=== PATIENT | female | born 1945 | race Caucasian/White ===

== ENCOUNTER 2016-07-31 17:55 | Inpatient (IN) | payer MEDICARE, OTHER ==
[~2016-07-31] VITALS: Ht 162.6 cm; Wt 122.0 kg
--- NOTE | ~2016-07-31 | CON ---
PATIENT'S NAME: ADRIANNE THRASHER [facility] AGE: 70 Y [address] ROOM: [address] [address] [facility] ADMIT DATE: 07/31/2016 Consultation DISCHARGE DATE: FAMILY PHYSICIAN: PHYSICIAN, UNKNOWN ATTENDING PHYSICIAN: WENDY CORONEL REFERRING PHYSICIAN: HUNG CASTANON MD REASON FOR CONSULTATION: Chest pain. REQUESTING PROVIDER: Dr. Burrows. PRIMARY CARE PROVIDER: KI Meng. CHIEF COMPLAINT: Chest pain and shortness of breath. HISTORY OF PRESENTING ILLNESS: The patient is a very pleasant, 70-year-old female, who says for the last 1 to 2 months she has been having dry cough. She also has occasional green phlegm associated with it; however, she does not have any fever or chills. It has been off and on. Her main symptoms have also been dyspnea on exertion as well as chest pressure and heaviness with exertion, it lasts about 5 to 10 minutes and resolves with rest. She reports she is doing lesser activities due to these symptoms. The symptoms were coming on with lesser exertion in the past month or so. She also reports a chest pressure and heaviness that radiate to her left arm as well as her jaw, it is predictably exertional. She also reports she was stopped off her lisinopril for the cough, but that persisted. The patient recently saw Pulmonary Department for her dry cough as well as dyspnea on exertion. There was suspicion for unstable angina and I was asked to see the patient. I did interview her briefly; however, I did not do a full consultation that was scheduled for [place] on Friday within a week, and I gave her samples of Ranexa to see if that will help alleviate some of her symptoms while awaiting possibly a stress test and echocardiogram. However, in the last 2 days, she has been having more shortness of breath and chest discomfort that gets better with rest. The chest pain is left-sided, it is mostly pressure and tightness, it does radiate to the shoulder and arm and lasts about 10 minutes and resolves with rest, and this occurred when she was working in her garden. PATIENT'S NAME: ADRIANNE THRASHER [facility] AGE: 70 Y [address] ROOM: [address] [place], [place] [address] LOCATION: [facility] ADMIT DATE: 07/31/2016 Consultation DISCHARGE DATE: FAMILY PHYSICIAN: PHYSICIAN, UNKNOWN ATTENDING PHYSICIAN: WENDY CORONEL It is always provoked with exertion and resolved with rest. She does not have any stroke-like symptoms. No bleeding issues. No upcoming surgeries. No contrast allergies. Her cardiac isoenzymes so far have been negative. She is on Eliquis for PE that occurred about 9 months ago. EKG shows dynamic T-wave inversion in lead V2. She does have T-wave inversion in lead III as well. REVIEW OF SYSTEMS: All review of systems discussed with the patient, pertinent positives and negatives mentioned in the history of presenting illness. PAST MEDICAL HISTORY: 1. Bilateral PE, on Eliquis, diagnosed about 9 months ago. 2. GERD. 3. Hypothyroidism. 4. Restless legs syndrome. 5. Depression. 6. Hypertension. ALLERGIES: AMOXICILLIN, LISINOPRIL, AND NICKEL. HOME MEDICATIONS: That she is on, 1. Albuterol inhaler. 2. Eliquis 5 mg p.o. b.i.d. 3. Symbicort inhaler twice a day. 4. Vitamin D3 1000 units daily. 5. Klonopin 2 mg at bedtime. 6. Flexeril 10 mg t.i.d. p.r.n. for muscle spasms. 7. Synthroid 112 mcg. 8. Meloxicam 15 mg at bedtime. 9. Mesalamine 500 mg p.o. b.i.d. 10. Nitroglycerin sublingual p.r.n. 11. Omeprazole 20 mg daily. 12. Paroxetine 40 mg daily. 13. Ranexa 500 mg b.i.d. 14. Valsartan 80 mg daily. 15. Venlafaxine 150 mg at bedtime. 16. Ambien 10 mg at bedtime. SOCIAL HISTORY: The patient denies any alcohol, illicit drug abuse, or cigarette smoking. PATIENT'S NAME: ADRIANNE THRASHER [facility] AGE: 70 Y [address] ROOM: [place] [address] LOCATION: [facility]U ADMIT DATE: 07/31/2016 Consultation DISCHARGE DATE: FAMILY PHYSICIAN: PHYSICIAN, UNKNOWN ATTENDING PHYSICIAN: WENDY CORONEL FAMILY HISTORY: No premature coronary artery disease or sudden cardiac . PAST SURGICAL HISTORY: Status post carpal tunnel surgery in the past. PHYSICAL EXAMINATION: VITAL SIGNS: Blood pressure 140/80, respirations 14, O2 saturations 98% on room air, afebrile, and heart rate in the 70s. GENERAL APPEARANCE: She is alert and oriented, in no apparent distress. HEENT: Head, atraumatic and normocephalic. Extraocular movements are intact. Sclerae white. Mucous membranes moist. NECK: No JVD. HEART: S1, S2. Regular rate and rhythm. No murmurs, gallops, or rubs. RESPIRATORY: Clear to auscultation bilaterally. ABDOMEN: Obese, soft. Bowel sounds positive. EXTREMITIES: No significant lower extremity edema. NEUROLOGIC: Grossly intact. Able to move all extremities against gravity. SKIN: Warm and dry. MUSCULOSKELETAL: Good range of motion. LABORATORY DATA: Sodium 140, potassium 4.2, chloride 107, CO2 of 23, glucose 96, BUN 14, creatinine 1, alkaline phosphatase 64, AST 17, ALT 16, GFR 55, triglycerides 172, HDL 60, VLDL 34, LDL 78, CPK 139 and 176, CK-MB 0.5 and 0.5, troponin less than 0.04 x2, proBNP is 61, TSH is 4.1. WBC 5.8, H and H of 12.4 and 38.3, and platelets are 235. Chest x-ray: No vascular congestion or acute infiltrate. She does have a hiatal hernia. EKG: Normal sinus rhythm. T-wave inversion in lead V2 and III. IMPRESSION: 1. Unstable angina. 2. Hypertension. 3. Hyperlipidemia. 4. Morbid obesity. 5. Gastroesophageal reflux disease. 6. Hypothyroidism. 7. Chronic kidney disease, stage 2. PLAN: The patient describes symptoms of unstable angina. Her symptoms are predictably exertional and they resolve with rest. She has chest pain radiating to the left arm and jaw, associated with dyspnea on exertion that PATIENT'S NAME: ADRIANNE THRASHER [facility] AGE: 70 Y [address] ROOM: [place] [address] [facility] ADMIT DATE: 07/31/2016 Consultation DISCHARGE DATE: FAMILY PHYSICIAN: PHYSICIAN, UNKNOWN ATTENDING PHYSICIAN: HOMERWENDY resolves with rest. She is limiting her activities due to her symptoms. At this time, cardiac cath is indicated to define her coronary anatomy and help guide therapy. Risks and benefits are discussed with the patient, and she is agreeable to proceed with plan. Risks of bleeding, bruising, infection 1 in 100 cases; risks of heart attack, , stroke, [place], TICO, losing a limb, ending up on dialysis less than 1 in 1000 cases. Given her worsening symptoms and having the need to reduce her physical exertion, the patient at this time is agreeable to proceed with cardiac cath, possible PCI. Thank you very much for allowing us to participate in the care of Mrs. Thrasher. HUNG CASTANON MD AT/modl /[id number] d: 08/01/16 1013 t: 08/01/16 1401, CONSULTATION REPORT
--- NOTE | ~2016-07-31 | CON ---
PATIENT'S NAME: ADRIANNE THRASHER [facility] AGE: 70 Y [address] ROOM: [place] [address] [facility] ADMIT DATE: 07/31/2016 Consultation DISCHARGE DATE: FAMILY PHYSICIAN: Mihir Lima ATTENDING PHYSICIAN: WENDY CORONEL DATE OF CONSULTATION: 08/01/2016 REFERRING PHYSICIAN: HUNG CASTANON MD CHIEF COMPLAINT: Right knee pain. HISTORY OF PRESENT ILLNESS: Ms. Thrasher is a pleasant, 70-year-old, female who presented to the hospital with an unstable angina. The patient has a history of symptomatic right knee osteoarthritis. She has been seen and treated by an orthopedic surgeon in [place]. Apparently, her cardiac event is well controlled now. She explained to me that the workup has not revealed anything particularly detrimental. She requested that Orthopedics be consulted for evaluation of her right knee. She reports the right knee has been symptomatic for a number of years. She has had a series of intra-articular cortisone shots in the past which have helped, the most recent one that was performed in May, has provided no symptomatic relief. She reports having a previous right knee arthroscopy in 2007, that also helped. Currently, the patient reports being an independent ambulator at baseline. Aggravating factors include standing, walking, bearing weight, the bending her knee, and working on her knees in the garden. Alleviating factors include rest, ice, elevation, and use of nonsteroidal anti-inflammatory medication. Currently, the patient denies any recent trauma. She also denies any constitutional symptoms such as fever, chills, or night sweats. She denies any dizziness, chest pain, shortness of breath, blurred vision, nausea, vomiting, or diarrhea. REVIEW OF SYSTEMS: Review of systems as mentioned above. The rest is noted as negative. Her issue is musculoskeletal in nature. PAST MEDICAL HISTORY: Bilateral pulmonary embolisms, on Eliquis; hypothyroidism; restless legs syndrome; depression; and hypertension. ALLERGIES: AMOXICILLIN, LISINOPRIL, AND NICKEL. HOME MEDICATIONS: 1. Albuterol. PATIENT'S NAME: ADRIANNE THRASHER [facility] AGE: 70 Y [address] ROOM: [place] [address] LOCATION: [facility]PCU ADMIT DATE: 07/31/2016 Consultation DISCHARGE DATE: FAMILY PHYSICIAN: Mihir Lima ATTENDING PHYSICIAN: WENDY CORONEL 2. Eliquis. 3. Symbicort. 4. Vitamin D. 5. Klonopin. 6. Flexeril. 7. Synthroid. 8. Meloxicam. 9. Mesalamine. 10. Nitroglycerin. 11. Omeprazole. 12. Paroxetine. 13. Ranexa. 14. Valsartan. 15. Venlafaxine. 16. Ambien. SOCIAL HISTORY: She denies any alcohol, tobacco, or illicit drug use. She lives alone. FAMILY HISTORY: She denies any coronary artery disease or sudden . PAST SURGICAL HISTORY: Carpal tunnel surgery in the past. She also notes right knee arthroscopy in 2007 at an outside institution. PHYSICAL EXAMINATION: VITAL SIGNS: Currently afebrile. She is stable. No acute distress. GENERAL: She is awake, alert, and oriented x3. She is actively conversing with me at the bedside. She reports that she is in good spirits. HEENT: Normocephalic and atraumatic. Extraocular movements are intact. PERRLA. Moist mucous membranes. Oropharyngeal airway is clear. NECK: Supple. Trachea is in the midline. ABDOMEN: Soft, nontender, and nondistended. CARDIOVASCULAR: Regular rate and rhythm. CHEST: Normal symmetric respirations observed bilaterally. EXTREMITIES/MUSCULOSKELETAL: Right Lower Extremity: Focal examination of the patient's right lower extremity reveals that her thigh, calf, and foot are soft. Compartments are soft. There is a moderate knee joint effusion. Two well-healed arthroscopic portals on the anterior aspect of the knee. Collaterals and cruciates are stable. Range of motion of the knee is 0-130 degrees of flexion. There are palpable dorsalis pedal and posterior tibial pulses. Full ankle range of motion and strength is noted. There is crepitus with range of motion of her knee. PATIENT'S NAME: ADRIANNE THRASHER [facility] AGE: 70 Y [address] ROOM: [address] [place], [place] [address] LOCATION: [facility]PCU ADMIT DATE: 07/31/2016 Consultation DISCHARGE DATE: FAMILY PHYSICIAN: Mihir Lima ATTENDING PHYSICIAN: WENDY CORONEL IMAGING: Plain radiographs of the right knee were obtained here at the hospital. There is evidence of tricompartmental osteoarthritis of the knee and a small knee joint effusion. IMPRESSION: 1. Symptomatic right knee primary osteoarthritis, recalcitrant to conservative care. 2. Unstable angina. 3. Hypertension. 4. Hyperlipidemia. 5. Morbid obesity. 6. Gastroesophageal reflux disease. 7. Hypothyroidism. 8. Chronic kidney disease. PLAN: I had a long discussion with the patient regarding her right knee. She has symptomatic tricompartmental primary osteoarthritis of the knee. She is in lot of pain. Unfortunately, she has been admitted for unstable angina. I explained to her that if we exhaust conservative care, right knee replacement may be in order. An inpatient knee replacement is inappropriate. We discussed these reasons why in detail. She will follow up with me as an outpatient. I have answered all the questions today at the bedside to their satisfaction. MD ALTHEA COPELAND/yuli /[id number] d: 08/01/16 2247 t: 08/02/16 0825, CONSULTATION REPORT
--- NOTE | ~2016-07-31 | CATH ---
Cardiac Diagnostic Report Demographics Patient Name ANNA MARIE Porras Gender Female Date of 1945 Age 70 year(s) Patient Number [id number] Date of Study 08/01/2016 Visit Number [id number] Room Number G[address] [place] [id number] Ht 162.56 cm Wt 121 kg Referring Gebremicheal Primary Physician Physician Geovanna Performing [place] Secondary Physician Physician Eliane KO [facility] Assisting Physician Physician Eliane KO Interventional Physician Occupational Health Rn Physician Findings and Conclusions Diagnostic Findings and Conclusion 1) Mild Non-Obstructive CAD 2) 20% min LCx and 20% mid LAD 3) Elevated LVEDP 20mmHg Diagnostic Recommendations 1) Continue Medical Therapy 2) Lasix 40mg PO qAM Procedure Description The patient was brought to the diagnostic cardiac catheterization-EP laboratory in the fasting, non-sedated state. Informed consent was obtained in the written and verbal form after the risks and benefits were explained. The patient had no further questions and agreed to proceed. The planned puncture-incision site(s) were shaved and prepped with ChloraPrep and draped in the usual sterile manner. Conscious sedation, supplemental oxygen, and pain control medications were delivered by a registered nurse under physician guidance. Surface ECG rhythm, blood pressure measurement, and pulse oximetry were monitored throughout the procedure. Arterial access. The access site was infiltrated with lidocaine. The vessel was entered with the Seldinger technique. A sheath was advanced into the vessel and used for catheter placement. Selective left coronary angiography. A catheter was advanced into the left coronary vessel ostium under Fluoroscopic guidance. Contrast was injected by hand. Images were obtained in multiple projections. Selective right coronary angiography. A catheter was advanced into the right coronary vessel ostium under fluoroscopic guidance. Contrast was injected by hand. Images were obtained in multiple projections. Left heart catheterization. A catheter was advanced across the aortic valve to the left ventricle under fluoroscopic guidance. Resting hemodynamics were obtained. Arterial artery hemostasis was achieved. The patient was transferred to a regular nursing floor via cart accompanied by a nurse. The patient left the laboratory in stable condition. Diagnostic Cath Status: Urgent Procedure Procedure Type Diagnostic procedure:Angiography:, Coronary Angios w/[facility] Indications: Unstable angina and Dyspnea with exertion. The procedure was explained in detail to the patient. Risks, complications and alternative treatments were reviewed. Written consent was obtained. Medications Reviewed with Patient prior to Procedure. Angiographic Findings Dominance: Right Cardiac Arteries and Lesion Findings LMCA: Normal (0% Stenosis). LAD: Abnormal.The 1st Diag appears normal. Lesion on Mid LAD: 20% stenosis . LCx: Abnormal.The 1st ob Teresita appears normal. Lesion on Prox CX: 20% stenosis . RCA: Normal (0% Stenosis).The R PL appears normal. The R PDA appears abnormal. Coronary Tree Procedure Data Procedure Date Date: 08/01/2016Start: 09:40 AMEnd: 10:10 AM Entry Locations - Retrograde Percutaneous access was performed through the Right Radial artery (Primary location). A 6 Fr sheath was inserted. Unsuccessful closure attempt was performed using: an R band. Hemostasis was successfully obtained using Mechanical Compression. Closure Comments: Amador placement 18ml air in band. Procedure Medications Order and Administration + + + + + !Time !Medication !Dosage !Route ! + + + + + !08/01/2016 09:30 AM !Versed !1 mg !I.V. ! + + + + + !08/01/2016 09:30 AM !Fentanyl !50 mcg !I.V. ! + + + + + !08/01/2016 09:37 AM !Oxygen !2 l/min !NC ! + + + + + !08/01/2016 09:42 AM !Radial Verapamil !2.5 mg !I.A. ! + + + + + !08/01/2016 09:44 AM !Heparin (ACC_3) !5000 units !I.V. bolus ! + + + + + Devices Used - A5 Fr. BS JR 4 Diag. Catheterwas used for:Right coronary angiography. - A5 Fr. BS JL 3.5 Diag. Catheterwas used for:Left coronary angiography. - A5 Fr. BS Angled Pigtail Diag. Catheterwas used for:LV Pressures. Contrast Material - Isovue 04878 ml Fluoroscopy Time: Diagnostic: 5:24 minutes. Total: 5:24 minutes. Fluoroscopy Dose: Diagnostic: 803 mGy. Total: 803 mGy. Estimated Blood Loss: 10 ml. Medical History Performed Procedures and Imaging Results - No [facility] stress or imaging studies were performed. Allergies - Penicillin. - Other:(Nickel). - Antibiotics:(Amoxicillin). - Other:(Lisinopril). Risk Factors The patient risk factors include:hypertension, family history of premature CAD, last creatinine: 1 mg/dl and creatinine clearance: 101.42 ml/min. Admission Data Admission Date: 07/31/2016 Admission Time: 07:32 PM Admit Source: [facility] Insurance Payors: Medicare. Admission Medications + +------+------+ + + + + !Medication !Dosage!Times !Last !Last !Administered !Comments ! ! ! !Per !Delivery !Delivery ! ! ! ! ! !Day !Date !Time ! ! ! + +------+------+ + + + + !Beta ! ! ! ! !Yes ! ! !Gail ! ! ! ! ! ! ! !(any) ! ! ! ! ! ! ! + +------+------+ + + + + !Statin ! ! ! ! !Yes ! ! !(any) ! ! ! ! ! ! ! + +------+------+ + + + + Clinical Evaluation Leading to Procedure - The patient's anginal syndrome during the past two weeks was assessed as: Class III according to the [place] Cardiovascular Society Classification System (CCS). Anti-anginal medications were prescribed during the past two weeks. The medications are: Beta Blockers and Ranolazine. - The patient has been in a state of heart failure within the past two weeks. - The patient's heart failure status was assessed as NYHA Class III, with CHF symptoms of SIBLEY. Hemodynamics Condition: Rest O2 Consumption: Estimated: 202.39Heart Rate: 68 bpm Pressures (mmHg) +-----+ + !Site !Pressure ! +-----+ + !AO !116/73 (93) ! +-----+ + !LV !112/8 ,20 ! +-----+ + !LV !111/8 ,19 ! +-----+ + !AO !107/61 (83) ! +-----+ + !LV !110/7 ,19 ! +-----+ + Valve Gradients and Areas + +---------+---------+---------+ +---------+ + !Valve !Peak !Mean !Area !Index !Flow !Source ! + +---------+---------+---------+ +---------+ + !Aortic !3 !5 ! ! ! ! ! + +---------+---------+---------+ +---------+ + !Aortic !3 !5 ! ! ! ! ! + +---------+---------+---------+ +---------+ + Shunts Oxygen Values O2 Capacity 168.64 O2 Consumption 202.39 Signatures dtt: ELIANE CASTANON dtd: 08/01/16 0940 Physician Self Edit
--- NOTE | ~2016-07-31 | PUL ---
PATIENT'S NAME: ADRIANNE THRASHER [facility] AGE: 70 Y [address] ROOM: [address] [address] LOCATION: GPCU ADMIT DATE: 07/31/2016 Pulmonary DISCHARGE DATE: 08/02/2016 FAMILY PHYSICIAN: Mihir Lima ATTENDING PHYSICIAN: Geovanna South NAME OF PROCEDURE: Overnight Pulse Oximetry DATE OF PROCEDURE: August 01 to August 02, 2016 REASON FOR EXAM: Nocturnal hypoxemia RESULTS: The test was performed on room air. The recording time was 8 hours, 44 minutes, and 24 seconds, with a total valid sampling time of 8 hours, 30 minutes, and 12 seconds. The highest pulse was 88, lowest 57, with a mean of 64. The highest SpO2 was 99%, lowest SpO2 was 87%, with a mean SpO2 of 94%. The patient spent 1 minute and 4 seconds with SpO2 less than 89%, representing 0.2% of the total sleep time. The desaturation event index was mildly elevated at 6.0. PHYSICIAN INTERPRETATION: The patient does not have evidence of significant nocturnal hypoxia and would not qualify for supplemental oxygen as per Medicare criteria. There is mild elevation in the desaturation event index which is suggestive of obstructive sleep apnea. Clinical correlation is advised. MD TATUM SCHMID/migue /[id number] dtt: 08/07/16 0722 SHAR RADU F dtd: 08/06/16 1451
--- NOTE | ~2016-07-31 | HP ---
PATIENT'S NAME: ADRIANNE THRASHER [facility] AGE: 70 Y [address] ROOM: [id number] [place], [place] [address] LOCATION: [facility] ADMIT DATE: 07/31/2016 History & Physical DISCHARGE DATE: FAMILY PHYSICIAN: PHYSICIAN, UNKNOWN ATTENDING PHYSICIAN: WENDY CORONEL DATE OF SERVICE: CHIEF COMPLAINT: Chest pain and dyspnea on exertion. HISTORY OF PRESENT ILLNESS: This is a 70-year-old female who says that for the last 2 months, she has been having this dry cough, occasionally some green phlegm, but most of the time is a dry cough. She started taking lisinopril in March 2016. Initially, she thought that the dry cough was due to lisinopril. Therefore, her primary care physician stopped the lisinopril in June 2016, but her dry cough persisted. She states that the dry cough gets worse with exertion. This Friday, she saw Yohana the PA, for the Pulmonology and the patient was referred to see the level vial sealer, Dr. Fishman, on the same day. According to the patient, the shortness of breath was likely from the cardiac etiology and not from the pulmonary etiology. Dr. Fishman is scheduled to see her again next Friday in [place]. In the meantime, the patient has been having more dry cough. At the same time, roughly 6 weeks ago, the patient has been having this exertional dyspnea and gets better with rest. About 3 months ago, the patient also has been having this left-sided chest pressure. She states it is not pain, but it is like chest tightness that sometimes radiate to the left shoulder and left arm, is on and off, lasts about few minutes and the last time she felt this chest tightness was last night when she was working in the garden. The chest tightness always goes away with rest and is always provoked by exertion. Because of these dry cough, exertional chest tightness, and exertional dyspnea, the patient today went to the ER in [place] and the patient was referred here for further care. Cardiac enzymes over there at the outside facility were negative the first set. EKG was also performed at the outside facility, where it showed T inversion in V2 and lead III in the septal and inferior leads. Sinus rhythm. Compared to the prior EKG back in January 2015, the patient only had a T inversion in lead III, but not in the lead V2. The patient was referred here for further care. REVIEW OF SYSTEMS: As mentioned in the history of present illness. All other systems were reviewed and she denies any other symptoms except those mentioned in history of present illness. PATIENT'S NAME: ADRIANNE THRASHER [facility] AGE: 70 Y [address] ROOM: [place] [address] LOCATION: [facility] ADMIT DATE: 07/31/2016 History & Physical DISCHARGE DATE: FAMILY PHYSICIAN: PHYSICIAN, UNKNOWN ATTENDING PHYSICIAN: WENDY CORONEL PAST MEDICAL HISTORY: 1. History of bilateral pulmonary emboli, on Eliquis. 2. Gastroesophageal reflux disease. 3. Hypothyroidism. 4. Restless legs syndrome. 5. Depression. 6. Hypertension. ALLERGIES: AMOXICILLIN, WHICH CAUSES RASH; LISINOPRIL, WHICH CAUSES DRY COUGH; AND NICKEL, WHICH CAUSES ITCHINESS. HOME MEDICATIONS: 1. Albuterol 1 puff inhalation every day p.r.n. for shortness of breath and wheezing. 2. Eliquis 5 mg p.o. b.i.d. 3. Symbicort 1 puff inhalation twice daily. 4. Vitamin D3 1000 units p.o. daily. 5. Klonopin 2 mg p.o. at bedtime. 6. Flexeril 10 mg p.o. t.i.d. p.r.n. for muscle spasm. 7. Levothyroxine 112 mcg p.o. daily. 8. Meloxicam 15 mg p.o. every night at bedtime. 9. Mesalamine 500 mg p.o. b.i.d. 10. Nitroglycerin sublingual 0.4 mg p.r.n. every 5 minutes p.r.n. for chest pain. 11. Omeprazole 20 mg p.o. daily. 12. Paroxetine 40 mg p.o. daily. 13. Ranexa extended release 500 mg p.o. b.i.d. 14. Valsartan 80 mg p.o. daily. 15. Venlafaxine 150 mg p.o. daily at bedtime. 16. Ambien 10 mg p.o. every night at bedtime. SOCIAL HISTORY: The patient denies any alcohol, illegal drugs, or cigarette smoking. FAMILY HISTORY: Father from myocardial infarction at age 70s and also had a heart failure. Mother from a glioblastoma multiform in the brain at old age. PAST SURGICAL HISTORY: Status post carpal tunnel surgery in the past. PHYSICAL EXAMINATION: PATIENT'S NAME: ADRIANNE THRASHER [facility] AGE: 70 Y [address] ROOM: [place] [address] LOCATION: [facility] ADMIT DATE: 07/31/2016 History & Physical DISCHARGE DATE: FAMILY PHYSICIAN: PHYSICIAN, UNKNOWN ATTENDING PHYSICIAN: WENDY CORONEL VITAL SIGNS: At the time of my dictation, temperature 98, heart rate 75, blood pressure 140/85, respirations 15, saturation 98% on room air. GENERAL APPEARANCE: Alert and oriented x3, in no acute distress. HEENT: Pupils are equally round and reactive to light. Extraocular muscles intact. Anicteric sclerae. Nasal turbinates are normal bilaterally. Moist oral mucosa. NECK: No JVD. CARDIOVASCULAR: Regular rate and rhythm. No murmur, no rubs, no gallops. Normal S1, S2. RESPIRATORY: Clear. No rales, no rhonchi, no wheezing, and no crackles. ABDOMEN: Obese, soft, nontender, nondistended, normal bowel sounds, and no hepatosplenomegaly. No mass. Bowel sounds are present. EXTREMITIES: No edema in upper or lower extremities. NEUROLOGIC: Grossly nonfocal. SKIN: No ulcer, no rash, no cyanosis. MUSCULOSKELETAL: No joint pain and no muscle pain. LABORATORY DATA: CPK 176, troponin less than 0.04. ProBNP is 61. White blood cells 5.8, hemoglobin 12.4, hematocrit 38.3, platelets 235. Glucose 85, BUN 14, creatinine 1.0. Sodium 140, potassium 4.1, chloride 104, CO2 27, calcium 8.7, total protein 7.2, albumin 3.7, AST 17, ALT 16, alkaline phosphatase 64, total bilirubin 0.5, direct bilirubin 0.2, magnesium 2.1. GFR 55. Anion gap is 13.1. PTT 30, INR pending. CK-MB less than 0.5. IMAGING STUDY: EKG in [place] on July 31, 2016, at 04:15 p.m. shows sinus rhythm, heart rate of 60 beats per minute with a T inversion in lead V2 and lead III. MD 196, QRS 86, and QTc 448. When compared to the prior EKG back on January 24, 2015, at 01:50 p.m. shows sinus rhythm, heart rate of 97. MD 164, QRS 80, QTc 427, and T inversion in lead III. Repeat EKG here in our facility on July 31, 2016, at 8:50 p.m. shows sinus rhythm of heart rate of 80. MD 196, QRS 85, QTc 421. T inversion in leads III. ASSESSMENT AND PLAN: 1. Regarding her exertional dyspnea and exertional chest pain: It sounds like a stable angina based on her history. The plan will be n.p.o. after midnight. Can have a cardiac diet until midnight. I will treat her with aspirin, a full dose now and then 81 mg daily. Lipitor full dose right now and then 80 mg daily. Lopressor 25 mg right now and then b.i.d. Echo in the morning. Cardiology consult in the morning. Cycle cardiac PATIENT'S NAME: ADRIANNE THRASHER [facility] AGE: 70 Y [address] ROOM: [place] [address] LOCATION: [facility] ADMIT DATE: 07/31/2016 History & Physical DISCHARGE DATE: FAMILY PHYSICIAN: PHYSICIAN, UNKNOWN ATTENDING PHYSICIAN: WENDY CORONEL enzymes every 6 hours. If she has chest pain, we will get EKG stat and also start a nitroglycerin drip. Continue her Eliquis. I will also get a chest x-ray to rule out any pneumonia. Further plan will depend on clinical course. 2. Regarding her gastroesophageal reflux disease: Continue home medication, which is omeprazole. 3. Regarding her hypothyroidism: Continue the home levothyroxine dose. Check a TSH and modify the dose if necessary. 4. Regarding her restless legs syndrome: Well controlled. She is not on any medication for that. 5. Regarding her depression: Continue antidepressant, venlafaxine. 6. Regarding her history of bilateral pulmonary emboli: Continue Eliquis. We will put her on oxygen nasal cannula if necessary for saturation more than 94%. 7. Regarding her code status: She is DO NOT RESUSCITATE/DO NOT INTUBATE. 8. Regarding her deep vein thrombosis prophylaxis: She is on Eliquis. Time spent in care on the day of admission is 50 minutes including half of the time was spent on counseling, including going over the plan of care, addressing all the questions and concerns that the patient and family member had at the bedside and going over the plan of care with the nurse. The remaining of the time was spent on chart review, interview, and also physical examination. Further plan will depend on clinical course. MD CHERI DIEHL/yuli /[id number] D: T: HISTORY & PHYSICAL
--- NOTE | ~2016-07-31 | ECHO ---
Transthoracic Echocardiography Report (TTE) Demographics Patient Name ADRIANNE THRASHER Date of Study 08/01/2016 Patient Number [id number] Visit Number [id number] Date of 1945 Room Number G[address]326 Accession Number [id number] Gender Female Age 70 year(s) Referring [facility] Transcriptionist Katelin Jin RVT Physician Geovanna Mcdermott MD Physician Interpreting Otilia Del Rio Dado Operator Physician Supervising Ordering Physician Stormy Mcdermott MD, MD/MLP Nurse Stress [employer] Powerplant Supervisor Conclusions Contractility Score Summary Normal Left Ventricular contractility was noted. Summary Normal LV/RV size and systolic function. The estimated left ventricular ejection fraction is 55-60%. Mild concentric left ventricular hypertrophy. The left atrium is moderately dilated by LA volume index measurement. IVC not visualized due to poor subcostal window Mild mitral annular calcification. Trivial mitral regurgitation by color Doppler. The aortic valve is mildly sclerotic. Trivial tricuspid regurgitation by color Doppler. Procedure Type of Study TTE procedure:2D Echocardiogram. Procedure Date Date: 08/01/2016 Start: 07:38 AM Study Location: Inpatient Portable Technical Quality: Adequate visualization Indications:Unstable angina. Appropriate Use Criteria: 9 Patient Status: Routine HR: 67 bpm BP: 118/68 mmHg Allergies - Penicillin. - Other:(Nickel). - Antibiotics:(Amoxicillin). - Other:(Lisinopril). M-Mode/2D Measurements LV Diastolic Dimension: 3.39 cm LV Systolic Dimension: 2.38 cm LV Septum Diastolic: 1.46 cm LV PW Diastolic: 1.32 cm AO Root Dimension: 2.9 cm Cardiac Output: 4.2 l/min AV Cusp Separation: 1.9 cm RV Diastolic Dimension: 2.97 cm LA volume: 92 ml LVOT: 2.1 cm LVOT VTI: 18.1 cm TAPSE: 1.7 cm LV Stroke volume: 62.66 ml Doppler Measurements AV Peak Velocity: 1.24 m/s MV Peak E-Wave: 0.98 m/s AV Peak Gradient: 6.15 mmHg MV Peak A-Wave: 0.8 m/s AV Mean Gradient: 4 mmHg MV E/A Ratio: 1.22 LVOT Peak Velocity: 0.82 m/s MV P1/2t: 49 msec TR Gradient:21.53 mmHg PV Peak Velocity: 0.68 m/s PV Peak Gradient: 1.86 mmHg E' Septal Velocity: 0.08 m/s A' Septal Velocity: 0.11 m/s E' Lateral Velocity: 0.08 m/s A' Lateral Velocity: 0.09 m/s Findings Left Ventricle Mild concentric left ventricular hypertrophy. Right Ventricle Normal right ventricle structure and function. Left Atrium The left atrium is moderately dilated by LA volume index measurement. Right Atrium IVC not visualized due to poor subcostal window. Mitral Valve Mild mitral annular calcification. Trivial mitral regurgitation by color Doppler. Aortic Valve The aortic valve is mildly sclerotic. Tricuspid Valve Trivial tricuspid regurgitation by color Doppler. Pulmonic Valve The pulmonic valve is not well visualized. Pericardial Effusion No evidence of pericardial effusion. Miscellaneous The ascending aorta maximum diameter measures 3.6 cm. Pleural Effusion No evidence of pleural effusion. Contractility Score LV regional wall motion:(0-Non visualized 1-Normal 2-Hypokinesis 3-Akinesis 4-Dyskinesis 5-Aneurysm) Signature dtt: HUNG CASTANON dtd: 08/01/16 0738 Physician Self Edit
[~2016-07-31 17:55] MED LIST: AMBIEN10 MG PO; CIPRO250 MG PO; ELIQUIS5 MG PO; FLEXERIL10 MG PO; FLOMAX0.4 MG PO; KLONOPIN2 MG PO; LEVOTHROID (S112 MCG PO; LEXAPRO20 MG PO; MOBIC15 MG PO; NORCO 5-325 MG1 TAB PO; PRILOSEC20 MG PO; ULTRAM50 MG PO; VENLAFAXINE HC150 MG PO; VITAMIN D-32000 UNI1 PO; XANAX0.5 MG PO
[2016-07-31] MEDS ORDERED: NITROSTAT0.4 MG SL (20:12)
[2016-07-31] MEDS ORDERED: SYMBICORT 16010.2 GM INH (20:13)
[2016-07-31] MEDS ORDERED: PROVENTIL OR V6.7 GM INH (20:13)
[2016-07-31] MEDS ORDERED: PAXIL40 MG PO (20:14)
[2016-07-31] MEDS ORDERED: DIOVAN80 MG PO (20:14)
[2016-07-31] MEDS ORDERED: PENTASA500 MG PO (20:15)
[2016-07-31] MEDS ORDERED: RANEXA ER500 MG PO (20:15)
[2016-07-31 21:22] LABS: BASOPHIL % 0.5 %; EOSINOPHIL # 0.1 K/uL (0.0-0.5); EOSINOPHIL % 2.4 %; HEMATOCRIT 38.3 % (33.0-46.0); HEMOGLOBIN 12.4 g/dL (10.0-15.0); IMMATURE GRANULOCYTE % 0.5 %; LYMPHOCYTE # 1.7 K/uL (0.8-4.0); LYMPHOCYTE % 29.9 %; MCH 31.6 pg (27.0-34.0); MCHC 32.4 gm/dL (32.0-36.5); MCV 97.5 fl (83.0-98.0); MONOCYTE # 0.7 K/uL (0.0-1.0); MONOCYTE % 11.9 %; MPV 9.4 fl (9.4-12.4); NEUTROPHIL # (ANC) 3.2 K/uL (1.8-7.8); NEUTROPHIL % 54.8 %; NRBC % 0 /100WBC (0-0.00); PLATELET COUNT 235 K/uL (150-450); RDW-CV 13.2 % (11.9-14.6); WBC 5.8 K/uL (4.0-11.0)
[2016-07-31 21:23] LABS: RBC 3.93 M/uL (3.50-5.50)
[2016-07-31 21:33] LABS: PTT 30 SECONDS (25-32)
[2016-07-31 21:39] LABS: CPK 176 IU/L (21-215)
[2016-07-31 21:46] LABS: ALBUMIN 3.7 gm/dL (3.5-5.0); ANION GAP 13.1 (10.0-19.0); CALCIUM 8.7 mg/dL (8.5-10.5); MAGNESIUM 2.1 mg/dL (1.8-2.6); POTASSIUM 4.1 mMol/L (3.7-5.1); TOTAL BILIRUBIN 0.5 mg/dL (0.0-1.5); TOTAL PROTEIN 7.2 g/dL (6.0-8.4)
[2016-07-31 21:59] LABS: PROTIME 10.5 SECONDS (9.8-11.4)
--- NOTE | 2016-08-01 00:18 | NUR ---
FOR THE PAST FEW MONTHS THE PATIENT HAS BEEN EXPERIENCING SOB WITH A COUGH AND CHEST PRESSURE WITH EXERTION. SHE RECENTLY WENT TO A BRAKE HOLDER WHO THOUGHT IT SOUNDED MORE LIKE A CARDIAC ISSUE. SHE WAS SCHEDULED TO SEE DR. WINSTON NEXT WEEK BUT AFTER EXPLAINING THE SITUATION TO HER FAMILY THEY TOLD HER SHE NEEDED TO GO SEE HER PRIMARY MD, WHO AFTER HEARING HER SYMPTOMS IMMEDIATELY SENT HER HERE VIA EMS. SHE WAS ADMITTED DIRECTLY TO PCU WITH AN ARRIVAL TIME OF 1944. SHE AMUBLATED WITH MINIMAL ASSIST IN NO APPARENT DISTRESS. RATED PAIN AT A 0 WITH NO SOB. SHE DID STATE SHE'S HAD A 10 LB WEIGHT GAIN RECENTLY. SHE REQUESTS TO BE A DNR. HX: ARTHRITIS, HTN, DEPRESSION
[2016-08-01 03:59] LABS: CPK 139 IU/L (21-215)
--- NOTE | 2016-08-01 04:53 | NUR ---
Significant Event: PATIENT A/0 X 3, AMBULATES STAND BY ASSIST. HR 60'S TO 70'S, SBP 162, AFTER HS MEDS REDUCED TO 140 THEN 116. ENDED UP PUTTING ON 2L 02 TO KEEP SATS > 94. HAS DENIED ALL PAIN THIS EVENING WITH NO SHORTNESS OF BREATH. ALL CARDIAC ENZYMES HAVE BEEN NEGATIVE. HAS BEEN NPO SINCE MIDNIGHT. CARDIOLOGY CONSULT WITH DR. WINSTON TODAY. [facility] REQUESTED PERMITS FOR CATH ON CHART BUT WILL SPEAK WITH PATIENT TODAY TO DISCUSS. 3 VIEW X RAY THIS AM OF HIP FOR RECENT FALL. Follow up:
[2016-08-01 07:17] LABS: ANION GAP 14.2 (10.0-19.0); CALCIUM 8.6 mg/dL (8.5-10.5); MAGNESIUM 2.3 mg/dL (1.8-2.6); POTASSIUM 4.2 mMol/L (3.7-5.1)
[2016-08-01 09:33] LABS: CPK 124 IU/L (21-215)
--- NOTE | 2016-08-01 16:49 | NUR ---
A&O. 1PA. VSS. C/O PAIN TO R KNEE AND HIP. HEART CATH TODAY R RADIAL. NO INTERVENTION. DENIES SOB. NO CHEST PAIN. LS CLEAR. BS ACTIVE. VD PER BR. XRAY OF KNEE TODAY ORTHO COMNSULT. 2L O2 @NOC TO KEEP >94% R BAND OFF. NICO DIET.
--- NOTE | 2016-08-02 06:55 | NUR ---
Significant Event: VSS. NO PAIN NO PAIN MEDS GIVEN. RIGHT RADIAL CATH SITE BAND AID/COBAND WITH NO COMPLICATIONS. ON OVERNIGHT TREND OX. POSSIBLE DISCHARGE TODAY. DEBLISS TO SEE KNEE AN OUTPATIENT. Follow up:
[2016-08-02] MEDS ORDERED: NORVASC2.5 MG PO (13:19)
[2016-08-02] MEDS ORDERED: ASPIRIN (CHILDR81 MG PO (13:20)
[2016-08-02] MEDS ORDERED: LASIX40 MG PO (13:23)
[2016-08-02] MEDS ORDERED: HUMIBID LA (MU600 MG PO (13:25)
[2016-08-02] MEDS ORDERED: IMDUR30 MG PO (13:26)
[2016-08-02] MEDS ORDERED: LOPRESSOR25 MG PO (13:29)
--- NOTE | 2016-08-02 13:57 | NUR ---
Introduced self and CM role to Nga. Nga tells me that she lives in [place], alone, and she plans on returning there later today as soon as MD has cleared her to do so. According to her RN Kiki, they are waiting for her results of her VQ scan to come back and then they will dismiss her. has already completed her medications. Nga tells me that her family will come and pick her up when doctors have cleared her to leave. In visiting with Nga, she states that her PCP is Dr. Lima and she gets her medications filled at [facility] in [place]. She does her own medications at home and will continue to do so. Nga tells me that she has Medicare [place], [place] for supplement and [employer] for her perscription coverage. She also has a cane that she uses if she needs to, denies the need for any further DME or HHC at this time. No other questions, needs or concerns. CM to continue to follow and assist. Plan home later today if VQ scan ok.
--- NOTE | 2016-08-02 16:09 | NUR ---
Patient dismissed home, patient transported via wheelchair by SENIOR SERVICE TECHNICIAN to private auto. Education on heart cath site home care, unstable/stable angina, and new medication education given to patient, verbalized understanding. Denies chest pain. VSS. Follow up appointments discussed
== END 2016-08-02 15:15 | disposition disaster alternative care site (69) | DRG 287 ==
LOC: GPCU 19:32
PROVIDERS: Internal Medicine; ADMIT Internal Medicine
PROC: B2111ZZ Fluoroscopy of Multiple Coronary Arteries using Low Osmolar Contrast (ICD-10-PCS; principal; 2016-08-01)
PROC: 4A023N7 Measurement of Cardiac Sampling and Pressure, Left Heart, Percutaneous Approach (ICD-10-PCS; principal; 2016-08-01)
DX: I25.110 Atherosclerotic heart disease of native coronary artery with unstable angina pectoris (principal); Z68.42 Body mass index [BMI] 45.0-49.9, adult; I12.9 Hypertensive chronic kidney disease with stage 1 through stage 4 chronic kidney disease, or unspecified chronic kidney disease; N18.2 Chronic kidney disease, stage 2 (mild); E78.5 Hyperlipidemia, unspecified; E03.9 Hypothyroidism, unspecified; E66.01 Morbid (severe) obesity due to excess calories; R05 Cough; M17.11 Unilateral primary osteoarthritis, right knee; Z82.49 Family history of ischemic heart disease and other diseases of the circulatory system; G25.81 Restless legs syndrome; K21.9 Gastro-esophageal reflux disease without esophagitis; Z86.711 Personal history of pulmonary embolism; Z79.01 Long term (current) use of anticoagulants; F32.9 Major depressive disorder, single episode, unspecified; Z66 Do not resuscitate; Z79.899 Other long term (current) drug therapy; K44.9 Diaphragmatic hernia without obstruction or gangrene
CPT/HCPCS: A9539; A9540; J1644; J2250; J3010; J7030; J7042